=== PATIENT | male | born 1985 | race Caucasian/White ===

== ENCOUNTER 2019-03-22 13:38 | Emergency (ER) | payer MEDICAID ==
[~2019-03-22] VITALS: Ht 185.4 cm; Wt 68.5 kg
[~2019-03-22 13:38] MED LIST: CLIN-26 PO; METO-292 PO; ONDA4TAB6 PO; ONDA8TAB9 PO; PANT20TA3 PO
[2019-03-22 13:43] VITALS: BP 140/96
== END 2019-03-22 14:33 | disposition home or self-care (01) ==
LOC: ER 13:39
DX: R06.02 Shortness of breath (principal); I48.91 Unspecified atrial fibrillation; K21.9 Gastro-esophageal reflux disease without esophagitis; G89.29 Other chronic pain; F12.90 Cannabis use, unspecified, uncomplicated
CPT/HCPCS: 99281